=== PATIENT | female | born 1960 | race Caucasian/White ===

== ENCOUNTER 2018-06-29 20:23 | Emergency (ER) | payer BC, OTHER ==
[2018-06-29] MEDS ORDERED: Norco 10/325 MG Tablet PO ONE (20:55)
[2018-06-29] MEDS ORDERED: Norco 10/325 MG Tablet ONE (20:58)
--- NOTE | 2018-06-29 21:02 | ERPHSYRPT ---
- History of Present Illness Time Seen by Provider: 06/29/18 20:45 Source: patient Exam Limitations: clinical condition Patient Subjective Stated Complaint: pt is alert and oriented. pt is ambulatory with a steady gait. pt come's in with c/o lower arm injury to right lower arm. pt states that an "ice machine door came down on her arm". she states that this happened around 1800. pt arm is slightly swollen. states tingling present in her finger tips. cap refil <3. radial pulses present, strong, and equal. Triage Nursing Assessment: see above Physician History: PATIENT STATES WHILE AT WORK OPENED AN ICE DOOR WHICH SLIPPED AND STRUCK HER RIGHT FOREARM SUSTAINED INJURY, SWELLING AND PAIN. HAD HAD PREVIOUS FRACTURE RIGHT WRIST 2007 REQUIRING EXTERNAL FIXATION. Occurred: hours ago Method of Injury: direct blow Quality: constant, throbbing Severity of Pain-Max: moderate Severity of Pain-Current: moderate Extremities Pain Location: forearm: right Modifying Factors: Improves With: movement Associated Symptoms: none Allergies/Adverse Reactions: codeine Adverse Reaction (Verified 10/25/15 06:19) nausea and vomiting meperidine HCl [From Demerol] Adverse Reaction (Verified 10/25/15 06:19) nausea and vomiting Home Medications: Aspirin [Low Dose Aspirin EC] 81 mg PO DAILY 06/29/18 [History] hydroCHLOROthiazide [Hydrochlorothiazide] 12.5 mg PO DAILY 06/29/18 [History] Hx Tetanus, Diphtheria Vaccination/Date Given: Yes (2007) Immunizations Up to Date: Yes - Review of Systems Constitutional: No Symptoms Ears, Nose, & Throat: No Symptoms Respiratory: No Symptoms Musculoskeletal: Injury, Joint Pain, Joint Swelling Skin: No Symptoms Neurological: No Symptoms - Past Medical History Pertinent Past Medical History: Yes Neurological History: No Pertinent History ENT History: No Pertinent History Cardiac History: Hypertension Respiratory History: No Pertinent History Endocrine Medical History: No Pertinent History Musculoskeletal History: Arthritis, Fractures GI Medical History: No Pertinent History History: No Pertinent History Psycho-Social History: No Pertinent History Female Reproductive Disorders: Endometriosis - Past Surgical History Past Surgical History: Yes Neuro Surgical History: No Pertinent History Cardiac: No Pertinent History Respiratory: No Pertinent History Gastrointestinal: No Pertinent History Genitourinary: No Pertinent History Musculoskeletal: Orthopedic Surgery Female Surgical History: Section, Hysterectomy Other Surgical History: external fixation broken wrist - Social History Smoking Status: Former smoker How long have you smoked: 5 years Drug Use: none - Female History Hx Now: No - Nursing Vital Signs Nursing Vital Signs: Initial Vital Signs Temperature 97.9 F 06/29/18 20:34 Pulse Rate 88 06/29/18 20:34 Respiratory Rate 20 06/29/18 20:34 Blood Pressure 130/77 06/29/18 20:34 O2 Sat by Pulse Oximetry 98 06/29/18 20:34 Pain Scale Pain Intensity 5 - Physical Exam General Appearance: mild distress Elbow/Forearm Exam: normal ROM (RIGHT RADIAL PULSE 2+), pain, soft tissue tenderness, swelling (SWELLING WITH TENDERNESS PROXIMAL RIGHT FOREARM TO DISTAL 3RD DORSUM, NO ECCHYMOSIS OR CREPITUS.) Neuro/Tendon Exam: normal motor functions SpO2: 98 Oxygen Delivery: Room Air - Radiology Exams Right Forearm X-ray Interpretation: Interpreted by me, Negative, No Fracture Ordered Tests: Active Orders 24 hr Category Date Time Status Cold Application STAT Care 06/29/18 20:36 Active Sling Application STAT Care 06/29/18 21:50 Ordered FOREARM Stat Exams 06/29/18 20:54 Ordered Medication Summary Discontinued Medications Generic Name Dose Route Start Last Admin Trade Name Freq PRN Reason Stop Dose Admin Hydrocodone Bitart/Acetaminophen 1 tab 06/29/18 20:55 06/29/18 20:58 [place] 10/325 Mg Tablet PO 06/29/18 20:56 1 tab STAT ONE Administration Hydrocodone Bitart/Acetaminophen Confirm 06/29/18 20:58 [place] 10/325 Mg Tablet Administered 06/29/18 20:59 Dose 1 tab .ROUTE .STK-MED ONE - Progress Progress: pain not gone completely Progress Note: 06/29/18 21:51 ADMINISTERED NORCO 10/325 ORALLY, APPLICATION OF ARM SLING Counseled pt/family regarding: diagnosis, rad results - Departure Time of Disposition: 22:00 Departure Disposition: Home Clinical Impression: RIGHT FOREARM CONTUSION Condition: Stable Critical Care Time: No Referrals: ANDREAS VAZQUEZ [Primary Care Provider] - Additional Instructions: WEAR ARM SLING FOR COMFORT. APPLY ICE OVER ARM SWELLING EVERY 4 HOURS, 30 MINUTES FOR 48 HOURS. FOLLOWUP WITH YOUR PRIMARY CARE PROVIDER IN 1 WEEK. Prescriptions: Hydrocodone/APAP 10/325 mg [[place] 10/325 MG Tablet] 1 tab PO Q6H PRN PRN # 14 tablet MDD 4 PRN Reason: Pain
[2018-06-29 22:01] VITALS: BP 129/74; PULSE 68; O2SAT 95
--- NOTE | 2018-06-30 07:19 | XRAY ---
Indication: Pain following injury. Comparison: None 2 views of the right forearm demonstrates old distal radial fracture and moderate degenerative changes of the 1st metacarpal multangular articulation. No other bony, articular, or soft tissue abnormalities.
== END 2018-06-29 22:04 | disposition home or self-care (01) ==
LOC: ED 20:23
DX: S50.11XA Contusion of right forearm, initial encounter (principal); W20.8XXA Other cause of strike by thrown, projected or falling object, initial encounter; Y93.9 Activity, unspecified; Y92.89 Other specified places as the place of occurrence of the external cause; Y99.0 Civilian activity done for income or pay
CPT/HCPCS: 73090; 99283; A9270-GY